=== PATIENT | female | born 1955 | race Caucasian/White ===

== ENCOUNTER 2017-09-15 14:34 | Emergency (ER) | payer OTHER ==
[~2017-09-15] VITALS: Ht 165.1 cm; Wt 86.2 kg
[~2017-09-15 14:34] MED LIST: ALBUTEROL INHAL17 GM IH; AMBIEN; AMBIEN 10 MG TA10 MG PO; AVELOX400 MG PO; FENTANYL PATCH75 MCG; HORMONE PATCH; HYDROCODONE-AP1 EAC6 PO; HYDROXYCHLOROQ200 M1 PO; LEVAQUIN 500 M500 M1 PO; LISINOPRIL10 MG PO; MAXALT MLT ODT10 M1 PO; MEDROLDOSEPACK PO; NORVASC5 MG PO; PERCOCET 5-3251 EACH PO; PREDNISONE 10 M10 M1 PO; PREMARIN1.25 MG; PROAIR HFA8.5 GM IH; TIZANIDINE4 MG/1 TA1 PO; XANAX 0.25 MG0.25 MG; ZOFRAN4 MG PO
[2017-09-15] MEDS ORDERED: HYDROXYCHLOROQ200 M1 PO (14:46)
[2017-09-15] MEDS ORDERED: DURAGESIC1 EAC1 TRANSDERM (14:47)
[2017-09-15] MEDS ORDERED: ZOFRAN ODT4 MG PO (16:26)
[2017-09-15 16:39] VITALS: BP 179/83
== END 2017-09-15 16:40 | disposition home or self-care (01) ==
LOC: M.ERS 14:34
DX: G43.909 Migraine, unspecified, not intractable, without status migrainosus (principal); M79.7 Fibromyalgia; I10 Essential (primary) hypertension; F17.210 Nicotine dependence, cigarettes, uncomplicated; Z88.0 Allergy status to penicillin; Z88.6 Allergy status to analgesic agent; Z88.1 Allergy status to other antibiotic agents; Z91.041 Radiographic dye allergy status

== ENCOUNTER → 2020-05-13 | Outpatient (CLI) | payer OTHER ==
[~2020-05-13] MED LIST changes: +AMLODIPINE BESY10 MG PO; +ATORVASTATIN CA20 MG PO; +DURAGESIC1 EAC1 TRANSDERM; +ENDOCET 10-3251 EACH PO; +FENTANYL1 EAC1 TOP; +MAXALT10 MG PO; +PRINIVIL20 MG PO; +SERTRALINE HCL50 MG PO; +ZOFRAN ODT4 MG PO; +ZOLPIDEM TARTRA10 MG PO
== END ==
LOC: M.LAB 16:12
PROVIDERS: ATTEND Surgery
DX: Z01.812 Encounter for preprocedural laboratory examination (principal); Z20.822 Contact with and (suspected) exposure to COVID-19; K80.20 Calculus of gallbladder without cholecystitis without obstruction

== ENCOUNTER → 2020-05-17 | Day surgery (SDC) | payer OTHER ==
[~2020-05-17] MED LIST changes: +NORCO5 PO
[2020-05-17 12:18] LABS: HEMATOCRIT 45.8 % (37.0-47.0); HEMOGLOBIN 14.8 gm/dL (12.0-15.0); MCH 27.3 pg (26.0-34.0); MCHC 32.3 g/dL (28.0-37.0); MCV 84.6 fL (80.0-100.0); MPV 8.4 fl. (7.2-11.1); RBC 5.42 mil/uL (4.20-5.00); WBC 8.1 thou/uL (4.0-11.0)
[2020-05-17 12:25] LABS: CALCIUM 9.7 mg/dL (8.5-10.1); CREATININE 0.9 mg/dL (0.6-1.3); POTASSIUM 3.8 mmol/L (3.5-5.1)
[2020-05-17 13:16] LABS: ALBUMIN 3.7 g/dL (3.4-5.0); TOTAL BILIRUBIN 0.4 mg/dL (<0.1-1.0); TOTAL PROTEIN 7.6 g/dL (6.4-8.2)
--- NOTE | 2020-05-17 16:47 | EKG ---
[place] [address] ELECTROCARDIOGRAM REPORT Name: KEILA VO Room: [facility]#: [id number] Admission: 05/17/20 Attend Phys: Jun Mark Discharge: Date of : 57 Date of Service: 05/17/20 1255 Report #: [id number] THIS REPORT FOR: //name// [facility] Test Date: 2020-05-17 Test Time: 12:55:16 Pat Name: KEILA VO Department: Room: Gender: F Halal Butcher: VINITA : 1955 Requested By: Jun Roberson Order Number: [id number] Dinesh MD: Pedrito Gonzalez Measurements Intervals [place] Rate: 57 P: -3 [place]: 153 QRS: -6 QRSD: 88 T: -19 QT: 416 QTc: 405 Interpretive Statements Sinus rhythm Abnormal R-wave progression, early transition LVH by voltage Nonspecific T abnormalities, inferior leads Compared to ECG 08/20/2012 11:49:25 Left ventricular hypertrophy now present T-wave abnormality now present Electronically Signed On 05-17-2020 16:47:42 LOOM OPERATOR APPRENTICE by Pedrito Gonzalez [email or web address] <ELECTRONICALLY SIGNED> By: Pedrito Gonzalez MD, FACC 05/17/20 1647 1255 1255 Pedrito Gonzalez MD, FAC /EPI
--- NOTE | 2020-05-19 09:15 | OP ---
[facility] [address] [place] [address] OPERATIVE REPORT Name: KEILA VO Room: [facility]#: [id number] Admission: 05/17/20 Attend Phys: Jun Roberson Discharge: Date of : 57 Report #: [id number] THIS REPORT FOR: cc: Marina,Daquan Russell,Daquan SHAFFER ~ Jun Roberson MD DATE OF SERVICE: 05/17/2020 PREOPERATIVE DIAGNOSIS: Symptomatic cholelithiasis. POSTOPERATIVE DIAGNOSES: 1. Chronic cholecystitis. 2. Acute cholecystitis. 3. Symptomatic cholelithiasis. PROCEDURE: Laparoscopic cholecystectomy with intraoperative cholangiogram. SURGEON: Jun Roberson MD ANESTHESIA: General. ESTIMATED BLOOD LOSS: Minimal. SPECIMEN: Gallbladder. DESCRIPTION OF PROCEDURE: After informed consent was obtained, the patient was brought to the operating room and placed supine. SCDs were placed and working, preoperative antibiotics were administered, general anesthesia was induced. The abdomen was prepped and draped in the usual sterile fashion. A 10-mm incision was made below the umbilicus. Fascia was incised and a trocar was placed. Pneumoperitoneum was established. Three right upper quadrant 5 mm ports were placed. Gallbladder was grasped at the fundus and retracted cephalad. Infundibulum was grasped and retracted laterally. I dissected out the cystic duct and cystic artery. There was severe inflammation of the gallbladder. I therefore elected to perform a cholangiogram. Cystic duct was fully identified. Cystic duct was clipped. Ductotomy was made. Cholangiogram catheter was inserted. Cholangiogram was performed. This demonstrated filling of the cystic duct, common bile duct, bifurcation of the hepatics, flow into the duodenum without any filling defects. Cystic duct was ligated using a PDS Endoloop. The cystic artery was clipped and ligated with a single clip. Gallbladder was then taken off the liver bed with electrocautery. It was placed into an Endopouch and removed. The liver bed was cauterized. FloSeal was placed in the liver bed for hemostasis. The ports were removed under direct vision. The skin was closed with 4-0 Monocryl. Fascia at the umbilicus was closed with a rwnsfz-cu-gwfby 0 Vicryl. Incisions were [place] [address] OPERATIVE REPORT Name: KEILA VO Room: [facility]#: [id number] Admission: 05/17/20 Attend Phys: Jun Roberson Discharge: Date of : 57 Report #: [id number] COMPLICATIONS: None. DISPOSITION: The patient was taken to recovery in satisfactory condition. <ELECTRONICALLY SIGNED> By: Jun Roberson MD 05/19/20 0915 1724 1744Joscout Roberson MD /nt
--- NOTE | 2020-05-21 17:06 | PATH ---
[address] [address] PATHOLOGY RPT PROCEDURE Name: GILDASONNY Martinez [id number]: 05/17/20 Date of : 57 Discharge: Report #: [id number] Path Case #: [id number] [facility] Accession Number: [id number] . 01 Material submitted: . gallbladder - GALLBLADDER WITH CONTENTS . 01 Clinical history: . CALCULUS OF GALLBLADDER . 02 Diagnosis: Gallbladder with contents: - Chronic and acute erosive cholecystitis with prominent mural fibrosis and cholelithiasis. See comment. (RIANA:pit 05/21/2020) [facility] 05/21/2020 1438 Local . 02 Comment: The grossly described "possible lesion" is seen to represent benign gallbladder with prominent erosion and underlying dense fibrosis. (RIANA:pit 05/21/2020) . 02 Electronically signed: . Asif Orosco MD, Pathologist NPI- [id number] . 01 Gross description: . The specimen is received in formalin, labeled "Sonny Vo gallbladder". Received is a previously opened gallbladder measuring 6.5 x 2.6 x 2.0 cm in greatest dimensions displaying a pink-núñez, shaggy serosal surface. Opening the specimen reveals a velvety, light corbin mucosa with a gallbladder wall thickness of 0.1 cm. Calculi are present displaying a yellow-corbin and smooth to nodular appearance. The mucosal surface displays a stellate white-corbin, smooth possible lesion measuring 1.1 x 1.0 cm, which is located at the mid aspect of the gallbladder. Center Punch Operator sections, to include the proximal margin, are submitted in cassette A1. The entire possible mucosal lesion is submitted in cassette A2. (CAA; 05/20/2020) [facility] 05/20/2020 1525 Local . 02 Pathologist provided ICD-10: K80.12 . 02 CPT . 552637 Specimen Comment: A courtesy copy of this report has been sent to [phone] Specimen Comment: Report sent to / Performed at: [address] [place] [address] PATHOLOGY RPT PROCEDURE Name: SONNY VO Room: [facility]#: [id number] Admission: 05/17/20 Date of : 57 Discharge: Report #: [id number] Path Case #: [id number] [facility] [place] [address], [place], [place] [id number] MD Issa Husain MD Phone: [phone] Performed at: [address] [facility] [address] [place] [id number] MD Asif Orosco MD Phone: [phone]
== END | disposition home or self-care (01) ==
LOC: M.SUR 05:44
PROVIDERS: ATTEND Surgery
DX: K80.12 Calculus of gallbladder with acute and chronic cholecystitis without obstruction (principal); R10.9 Unspecified abdominal pain; I10 Essential (primary) hypertension; M79.7 Fibromyalgia; G43.909 Migraine, unspecified, not intractable, without status migrainosus; Z98.890 Other specified postprocedural states; Z79.899 Other long term (current) drug therapy; Z88.0 Allergy status to penicillin; Z91.041 Radiographic dye allergy status; Z88.8 Allergy status to other drugs, medicaments and biological substances; Z79.82 Long term (current) use of aspirin